=== PATIENT | male | born 1965 | race Caucasian/White ===

== ENCOUNTER 2023-07-15 12:28 | Outpatient (REF) | payer BC, SELFPAY ==
--- NOTE | ~2023-07-15 | XR_ITS ---
EXAMINATION: XR SHOULDER, LEFT CLINICAL INFORMATION: Pain COMPARISON: None available. TECHNIQUE: Three views of the left shoulder. FINDINGS: Bone alignment is normal. No fracture or dislocation. The glenohumeral joint is normal. There is mild osteoarthritis at the acromioclavicular joint. There is an undersurface acromial osteophyte. Soft tissues are otherwise normal. XR/XR shoulder LT min 2V IMPRESSION: Mild osteoarthritis at the acromioclavicular joint and undersurface acromial osteophyte.
== END 2023-07-15 12:29 | disposition home or self-care (01) ==
LOC: HO.HOSX 12:28
PROVIDERS: Visit Provider Orthopaedic Surgery
DX: M24.812 Other specific joint derangements of left shoulder, not elsewhere classified (principal); M25.512 Pain in left shoulder; M25.511 Pain in right shoulder
CPT/HCPCS: 20610; 73030

== ENCOUNTER 2023-07-15 14:09 | Outpatient (AMB) | payer BC, SELFPAY ==
--- NOTE | 2023-07-15 14:13 | A.OFFVIS_ITS ---
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 Left>Right. Patient reports about 20 years ago he fell from stairs and dislocated both shoulders but landing on the left side. He was seen at the hospital and the shoulders were reduced. He has pain daily and this has impacted his daily activities. The shoulders felt okay after the injurt but over the last year his pain has increased significantly. 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 He reports falling down some stairs and dislocating both of his shoulders in 2002. These were reduced at the hospital and he denies any pain following this reduction. He complains of pain with daily activity, which has worsened in the last ~1 year. He says he feels an ache in his shoulder, like a tendon gets caught, and when he moves his shoulders he feels a popping in them and his pain improves somewhat. This pain is sharp and radiates from his shoulders down his arm and into his fingers. He says he has pain with overhead activity and heavy lifting. He says if he sleeps on his side he wakes up with his arm feeling numb. He denies any prior treatment. 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 [facility] Social History (Updated 07/15/23 @ 14:24 by Susan Navarrete [facility]) Current occupational status: employed Current occupation: [employer] Review of Systems Const All systems reviewed & are unremarkable except as noted in HPI and below Physical Exam Const General: no acute distress, alert and awake Orientation/consciousness: patient oriented x3 HEENT Head: Yes normocephalic and Yes atraumatic Eyes EOM: EOMs intact bilaterally Resp Effort & Inspection: normal respiratory effort and able to speak in complete sentences Cardio Jugular venous distension: no JVD Skin General skin exam: turgor normal Rashes: no rashes Neuro General: patient oriented x3 Extrem Other: Full ROM bilateral shoulders + H/N 4/5 empty can on left 5/5 on right neg lift off Psych Appearance: grossly normal Affect: normal affect Attitude: cooperative Office Procedures Joint Injection/Drain Joint Injection/Drain Details: Injected 1 mL of Decadron and 3 mL 1% lidocaine and 3 mL of 0.25% Marcaine. Site was prepped using aseptic technique. Patient tolerated the procedure well. Primary Site: left shoulder Approach Used: posterolateral Coding - Large joint Procedure code (CPT) selection complete Results Reviewed Results Reviewed: I personally reviewed relevant radiographs. Unremarkable left shoulder Assessment & Plan Assessment & Plan (1) Internal derangement of left shoulder: Code(s): M24.812 - Other specific joint derangements of left shoulder, not elsewhere classified Plan: This is a 58 year old man with left shoulder internal derangement. He has pain with daily activity, worse with overhead activity, heavy lifting, and at night. I discussed his diagnosis and treatment options. I recommend PT for st rengthening & NSAIDs. I ordered an MRI of his shoulder to assess the cuff given his weankess, and injected his left shoulder, which he tolerated well. He will follow up when completed for review. Plan Scribed for Audi Gould MD by Rui Onofre, medical laboratory technologist, on 07/15/23 at 2:45 PM, EST. Orders: Orders XR shoulder LT min 2V 07/15/23 M25.519 - Pain in unspecified shoulder PT Evaluation and Treatment 07/15/23 M24.812 - Other specific joint derangements of left shoulder, not elsewhere classified MR shoulder LT wo con 07/15/23 M24.812 - Other specific joint derangements of left shoulder, not elsewhere classified Coding Level of Care Code New Pt Level 4 (89827) Diagnoses Internal derangement of left shoulder M24.812 CPT Codes Coding - Large joint: 62520 - Large joint ([id number])
== END 2023-07-15 14:57 | disposition home or self-care (01) ==
PROVIDERS: Visit Provider Orthopaedic Surgery
DX: M24.812 Other specific joint derangements of left shoulder, not elsewhere classified (principal)
CPT/HCPCS: 20610; 99204